=== PATIENT | female | born 2000 | race Caucasian/White ===

== ENCOUNTER 2018-04-29 11:45 | Emergency (ER) | payer BC ==
--- NOTE | 2018-04-29 12:10 | EDPHY ---
H & P Stated Complaint: abd pain Time Seen by Provider: 04/29/18 12:09 HPI/ROS: HPI: This is a 17-year-old female who presents with Chief Complaint: abd pain Location: Epigastric abdominal Quality: Pain Duration: Several months Signs and Symptoms: no fever, no nausea, no vomiting, no hematemesis, no blood in stool, no abdominal bloating, no diarrhea, no back pain, no urinary symptoms , no vaginal bleeding/discharge, no indigestion, no chest pain, no shortness of breath, + fried food intolerance Timing: Comes and goes Severity: Moderate Context: Patient is student at [employer], [place]ial[place], presents with several month history of epigastric burning discomfort that is nonradiating in nature. She reports that it occurred several months ago and last at approximately 1 month but then went away. She reports that the pain has been present now for 1 week. She does report some intolerances to fried foods. She denies fever, chest pain, shortness of breath, diarrhea, vaginal bleeding, vaginal discharge, urinary symptoms. She has no primary care provider in the area. Denies regular alcohol or NSAID use. Denies bloating, early satiety. Has been tested for H pylori in the past and was negative per patient. Reports daily bowel movements. No Difficulty eating or drinking. Modifying Factors: [id number] medicines tried. Comment: ROS: A comprehensive 10 system review of systems is otherwise negative aside from elements mentioned in the history of present illness. MEDICAL/SURGICAL/SOCIAL HISTORY: Medical history: Right great toe infection. Does not take any regular medications. Surgical history: Denies Social history: Denies drug use. Family history noncontributory. CONSTITUTIONAL: Extremely polite and cooperative, teenage white female, awake and alert, no obvious distress HEENT: Atraumatic and normocephalic, PERRL, EOMI. Nares patent; no rhinorrhea; no nasal mucosal edema. Tympanic membranes clear. Oropharynx clear, no exudate and moist pink mucosa. Airway patent. No lymphadenopathy. No meningismus. Cardiovascular: Normal S1/S2, tachycardia, regular rhythm, without murmur rub or gallop. PULMONARY/CHEST: Symmetrical and nontender. Clear to auscultation bilaterally. Good air movement. No accessory muscle usage. ABDOMEN: Soft, nondistended, mild reproducible epigastric tenderness, minimal right upper quadrant tenderness, no rebound, no guarding, no peritoneal signs, no masses or organomegaly. No CVAT. EXTREMITIES: 2/2 pulses, strength 5/5, no deformities, no clubbing, no cyanosis or edema. NEUROLOGICAL: no focal neuro deficits. GCS 15. SKIN: Warm and dry, no erythema. no rash. Good capillary refill. Source: Patient Exam Limitations: No limitations - Personal History LMP (Females 10-55): IUD In Place Current Tetanus/Diphtheria Vaccine: Yes Current Tetanus Diphtheria and Acellular Pertussis (TDAP): Yes - Medical/Surgical History Hx Asthma: No Hx Chronic Respiratory Disease: No Hx Diabetes: No Hx Cardiac Disease: No Hx Renal Disease: No Hx Cirrhosis: No Hx Alcoholism: No Hx HIV/AIDS: No Hx Splenectomy or Spleen Trauma: No Other PMH: R great toe infection, - Social History Smoking Status: Never smoked Constitutional: Initial Vital Signs Temperature (C) 36.9 C 04/29/18 11:49 Heart Rate 112 H 04/29/18 11:49 Respiratory Rate 16 04/29/18 11:49 Blood Pressure 117/98 H 04/29/18 11:49 O2 Sat (%) 95 04/29/18 11:49 O2 Delivery Mode Room Air Allergies/Adverse Reactions: No Known Allergies Allergy (Unverified 04/29/18 11:49) Home Medications: Medication Instructions Recorded Pantoprazole Sodium [Protonix 40mg 40 mg PO DAILY #30 tab 04/29/18 (*)] Sucralfate [Carafate 1 GM (*)] 1 gm PO ACHS 7 Days tab 04/29/18 Medical Decision Making - Diagnostics Imaging Results: Imaging Impressions Abdomen Ultrasound 04/29/18 12:33 Impression: Normal right upper quadrant ultrasound. Findings discussed with Mireille Lancaster 04/29/2018 at 13:23. ED Course/Re-evaluation: Vital signs reviewed and show mild tachycardia. IV access and the laboratory studies along with right upper quadrant ultrasound to evaluate gallbladder ordered. Giving IV Protonix 40 mg, IV Zofran 4 mg, and GI cocktail Abdomen is soft and nontender; doubt perforation or free air. Suspect gastritis versus peptic ulcer disease versus gallbladder disease. 1315: Labs reviewed. No signs of leukocytosis/anemia/platelet dysfunction/MIKI/ elevated LFTs/electrolyte imbalance/pancreatitis. 1325: Called By radiologist who advised that right upper quadrant ultrasound is unremarkable. Patient given a prescription for Protonix/Carafate and referral to Gastroenterology to determine candidacy for outpatient EGD. Vital signs improved and stable at discharge. Tachycardia resolved. This patient was seen under the supervision of my secondary supervising physician. I evaluated care for this patient independently. Discussed this patient with Dr. Greenwodo who did not see the patient. Differential Diagnosis: Abdominal pain including but not limited to appendicitis, cholecystitis, gastritis and urinary tract infection. - Data Points Laboratory Results: Laboratory Results 04/29/18 12:03 04/29/18 12:03 04/29/18 04/29/18 04/29/18 12:03 12:03 12:03 WBC 6.88 10^3/uL 10^3/uL (3.80-9.50) RBC 4.98 10^6/uL 10^6/uL (4.18-5.33) Hgb 14.6 g/dL g/dL (12.6-16.3) Hct 42.3 % % (38.0-47.0) MCV 84.9 fL fL (81.5-99.8) MCH 29.3 pg pg (27.9-34.1) MCHC 34.5 g/dL g/dL (32.4-36.7) RDW 12.1 % % (11.5-15.2) Plt Count 282 10^3/uL 10^3/uL (150-400) MPV 8.6 fL L fL (8.7-11.7) Neut % (Auto) 52.5 % % (39.3-74.2) Lymph % (Auto) 22.4 % % (15.0-45.0) Kimble % (Auto) 6.0 % % (4.5-13.0) Eos % (Auto) 18.0 % H % (0.6-7.6) Baso % (Auto) 1.0 % % (0.3-1.7) Nucleat RBC Rel Count 0.0 % % (0.0-0.2) Absolute Neuts (auto) 3.61 10^3/uL 10^3/uL (1.70-6.50) Absolute Lymphs (auto) 1.54 10^3/uL 10^3/uL (1.00-3.00) Absolute Monos (auto) 0.41 10^3/uL 10^3/uL (0.30-0.80) Absolute Eos (auto) 1.24 10^3/uL H 10^3/uL (0.03-0.40) Absolute Basos (auto) 0.07 10^3/uL 10^3/uL (0.02-0.10) Absolute Nucleated RBC 0.00 10^3/uL 10^3/uL (0-0.01) Immature Gran % 0.1 % % (0.0-1.1) Immature Gran # 0.01 10^3/uL 10^3/uL (0.00-0.10) Sodium 136 mEq/L mEq/L (135-145) Potassium 3.7 mEq/L mEq/L (3.3-5.0) Chloride 101 mEq/L mEq/L (97-110) Carbon Dioxide 24 mEq/l mEq/l (22-31) Anion Gap 11 mEq/L mEq/L (6-14) BUN 20 mg/dL mg/dL (7-23) Creatinine 0.9 mg/dL mg/dL (0.6-1.0) Estimated GFR > 60 Glucose 89 mg/dL mg/dL (70-100) Calcium 9.8 mg/dL mg/dL (8.5-10.4) Total Bilirubin 1.1 mg/dL mg/dL (0.1-1.4) Conjugated Bilirubin 0.2 mg/dL mg/dL (0.0-0.5) Unconjugated Bilirubin 0.9 mg/dL mg/dL (0.0-1.1) AST 23 IU/L IU/L (14-46) ALT 24 IU/L IU/L (9-52) Alkaline Phosphatase 75 IU/L IU/L (38-126) Total Protein 7.2 g/dL g/dL (6.3-8.2) Albumin 4.8 g/dL g/dL (3.5-5.0) Lipase 144 IU/L IU/L (23-300) Beta HCG, Qual NEGATIVE Medications Given: Discontinued Medications Al Hydroxide/Mg Hydroxide (Maalox Susp) 30 ml PO ONCE ONE Stop: 04/29/18 12:34 Last Admin: 04/29/18 12:48 Dose: 30 ml Hyoscyamine Sulfate (Levsin, Hyomax-Sl) 0.25 mg PO ONCE ONE Stop: 04/29/18 12:34 Last Admin: 04/29/18 12:48 Dose: 0.25 mg Lidocaine (Lidocaine 2% Viscous) 15 ml PO ONCE ONE Stop: 04/29/18 12:34 Last Admin: 04/29/18 12:48 Dose: 15 ml Ondansetron HCl (Zofran) 4 mg IVP EDNOW ONE Stop: 04/29/18 12:34 Last Admin: 04/29/18 12:48 Dose: 4 mg Pantoprazole Sodium (Protonix) 40 mg IVP ONCE ONE Stop: 04/29/18 12:34 Last Admin: 04/29/18 12:48 Dose: 40 mg Departure - Departure Disposition: Home, Routine, Self-Care Clinical Impression: Gastritis Qualifiers: Gastritis type: unspecified gastritis Chronicity: acute Gastritis bleeding: without bleeding Qualified Code(s): K29.00 - Acute gastritis without bleeding Condition: Good Instructions: Gastritis (ED), Gastroesophageal Reflux Disease in Children (ED) , Diet for Stomach Ulcers and Gastritis (ED) Additional Instructions: Consume a minimum of 8-10 glasses of water or electrolyte fluid replacement drinks that include Gatorade, Powerade, Pedialyte. Eat a bland diet for the next 48 hours and then slowly advance as tolerated. Take Protonix daily. Take Carafate 4 times a day x7 days. Follow-up with Gastroenterology in the next 1-2 weeks. They will determine if you are a candidate for an EGD. Referrals: Manish Coley MD [Medical Doctor] - As per Instructions Prescriptions: Pantoprazole Sodium [Protonix 40mg (*)] 40 mg PO DAILY #30 tab Sucralfate [Carafate 1 GM (*)] 1 gm PO ACHS 7 Days tab
[2018-04-29] MEDS ORDERED: MAG HYDROX/AL HYDROX/SIMETH 30 ML UDCUP PO ONE (12:33)
[2018-04-29] MEDS ORDERED: HYOSCYAMINE SULFATE 0.125 MG TAB PO ONE (12:33)
[2018-04-29] MEDS ORDERED: PANTOPRAZOLE SODIUM 40 MG VIAL IVP ONE (12:33)
[2018-04-29] MEDS ORDERED: LIDOCAINE 2% VISCOUS 15 ML UDCUP PO ONE (12:33)
[2018-04-29] MEDS ORDERED: ONDANSETRON 4 MG/2 ML VIAL IVP ONE (12:33)
[2018-04-29 12:39] LABS: PLATELET COUNT 282 10^3/uL (150-400)
[2018-04-29 13:45] VITALS: BP 119/79
== END 2018-04-29 13:45 | disposition home or self-care (01) ==
DX: K29.00 Acute gastritis without bleeding (principal)
CPT/HCPCS: 96374; J2405